=== PATIENT | male | born 1975 | race Caucasian/White ===

== ENCOUNTER 2016-04-24 14:49 | Emergency (ER) | payer OTHER ==
[~2016-04-24] VITALS: Ht 182.9 cm; Wt 163.7 kg
[~2016-04-24 14:49] MED LIST: Catapres PO; ECOTRIN325 MG PO; METOPROLOL SUC100 MG PO; MOTRIN800 MG PO; PANTOPRAZOLE SO40 MG PO; Tricor PO; VALSARTAN-HCTZ1 EAC3 PO; XARELTO20 MG PO; Xarelto PO
[2016-04-24 15:17] LABS: HEMATOCRIT 41.2 % (38.0-50.0); MCH 28.7 PG (29.0-34.0); MCHC 35.2 G/DL (30.0-36.0); MCV 81.6 FL (86-99); MEAN PLAT.VOLUME 10.6 uM^3 (9.0-12.4); PLATELET COUNT 168 K/uL (156-360); RBC DIS.WIDTH-CV 13.6 % (11.8-14.6); RBC DIS.WIDTH-SD 39.4 % (39-53); RED BLOOD COUNT 5.05 M/uL (4.00-5.50); WHITE BLOOD COUNT 4.6 K/uL (4.1-10.2)
[2016-04-24 15:26] LABS: CHLORIDE 102 mEq/L (99-109); POTASSIUM 3.5 mEq/L (3.7-5.4); SODIUM 139 mEq/L (136-147)
[2016-04-24 15:28] LABS: GLUCOSE 116 mg/dL (70-99)
[2016-04-24 15:29] LABS: ANION GAP 10 MEQ/L (2-14)
[2016-04-24 15:31] LABS: GFR ESTIMATE (CALCULATED) > 59 mL/min/
[2016-04-24 15:32] LABS: UREA NITROGEN (BUN) 14 mg/dL (9-23)
[2016-04-24 15:38] LABS: TROP-I INTERPRETATION NEGATIVE; TROPONIN-I < 0.01 ng/mL (0.0-0.30)
[2016-04-24] MEDS ORDERED: FENOFIBRATE145 M1 PO (16:36)
[2016-04-24] MEDS ORDERED: CLONIDINE HCL0.1 MG PO (16:37)
[2016-04-24 18:13] LABS: D-DIMER ELISA < 0.15 mg/L FEU (< 0.57)
[2016-04-24 18:27] LABS: TROP-I INTERPRETATION NEGATIVE; TROPONIN-I < 0.01 ng/mL (0.0-0.30)
[2016-04-24 19:45] VITALS: BP 128/84
== END 2016-04-24 20:09 | disposition home or self-care (01) ==
LOC: EXP 14:49 → EME 14:49 → EXP 20:09
PROVIDERS: Emergency Medicine
DX: R07.9 Chest pain, unspecified (principal); I48.91 Unspecified atrial fibrillation; E78.5 Hyperlipidemia, unspecified; I10 Essential (primary) hypertension; K21.9 Gastro-esophageal reflux disease without esophagitis; Z79.01 Long term (current) use of anticoagulants
CPT/HCPCS: 71020; 80048; 84484; 85027; 85379; 93005; 99281; 99284